=== PATIENT | female | born 1995 | race Caucasian/White ===

== ENCOUNTER 2016-11-14 08:17 | Emergency (ER) | payer OTHER ==
--- NOTE | 2016-11-14 09:47 | DIAGNOSTIC IMAGING REPORT ---
PROCEDURE: XR ANKLE 3 OR 4 VIEWS - RIGHT INDICATION: TRAUMA/INJURY TECHNIQUE: Four views. COMPARISON: None. FINDINGS: Osseous structures and joint spaces are normal. IMPRESSION: 1. Normal right ankle.
--- NOTE | 2016-11-14 10:56 | ED NURSING NOTES ---
Clinical Report - Nurses [facility] [address] [place] [address] 11/14/2016 8:19 Patient: HIRAL VILLANUEVA TRIAGE Triage time 08:Nov 14 2016. Acuity: LEVEL 4. Chief Complaint: RIGHT LOWER EXTREMITY PAIN and SWELLING. Alert. No acute distress. TOBI COMA SCORE: [place] Coma Scale: 15- eyes open spontaneously (4); best verbal response- oriented x 4 (5); best motor response- obeys commands (6). --08:31 Blaire Sheikh R.N. 08:27 11/14/16. BP: 132/80. HR: 81. RR: 16. O2 saturation: 99%. Temp: 97.8 F. Pain level now: 03/31. --08:31 Blaire Sheikh R.N. Weight: 108.8 kg stated. Height/Length: 65 inches Per Patient. BMI: 40. --08:30 Blaire Sheikh R.N. Medications Multivitamin Oral. --08:29 Blaire Sheikh R.N. Fish Oil Oral. --08:29 Blaire Sheikh R.N. Allergies No Known Drug Allergy. --08:29 Blaire Sheikh R.N. History Arrived by private vehicle. Historian: patient. Accompanied by family. Injury occurred. This occurred just prior to arrival. Occurred at home. It is described as radiating to the right lower extremity and calf. ( pt was getting out of travel trailer and she slipped and caught foot between stair and trailer.). She has had trouble walking. PAST MEDICAL HX: Tetanus status: up-to-date. Immunizations: up-to-date. Last normal menstrual period was 1 week ago. Denies current . SOCIAL HX: Never smoker. No alcohol use or drug use. No infectious disease exposure. SELF HARM ASSESSMENT: A self harm assessment was performed. The patient answered "no" to the question "Do you have thoughts of harming or killing yourself?". FALL RISK ASSESSMENT: Fall risk assessment completed. No fall risk identified. NUTRITIONAL RISK ASSESSMENT: The nutritional risk assessment revealed no deficiencies. FUNCTIONAL ASSESSMENT: Functional assessment: no impairments noted. LEARNING NEEDS ASSESSMENT: The learning needs assessment revealed no barriers. ABUSE ASSESSMENT: Abuse assessment: The patient was asked "Do you feel safe in your home?". SKIN INTEGRITY ASSESSMENT: Skin integrity risk assessment completed. No skin integrity risk identified. --08:31 Blaire Sheikh R.N. PROBLEMS: Anemia. Immunizations. . --08:29 Blaire Sheikh R.N. ADDITIONAL SURGERIES: Dental Surgery. --08:29 Blaire Sehikh R.N. Interventions ID band on patient. To room. --08:31 Blaire Sheikh R.N. PHYSICAL ASSESSMENT To room via wheelchair. GENERAL / NEURO / PSYCH: Oriented X 4. Alert. Appears in no acute distress. Appears in pain. CVS: Pulses: right popliteal 3+ and left popliteal 3+. EXTREMITIES: Limited ROM present. Extremity pulses are within normal limits. Neuro-vascular status intact to the extremity. Right lateral ankle: tenderness and swelling and medial ankle: tenderness and swelling. SKIN: Skin is warm and dry. --08:33 Blaire Sheikh R.N. NURSING PROGRESS NOTES Cold pack applied. Patient identifiers checked. Call light placed in reach. Side rails up x 1. Bed placed in lowest position. Brakes of bed on. Patient ready for evaluation- chart flagged. --08:33 Blaire Sheikh R.N. 10:23 11/14/16. BP: 139/93. HR: 86. RR: 16. O2 saturation: 99%. Pain level now: 01/28. --10:24 Blaire Sheikh R.N. DISPOSITION / DISCHARGE Departure time: 11:Nov 14 2016. Condition at departure: improved. The following issues were addressed: pain control and comfort issues. No learning barriers present. Discharge instructions provided and reviewed with the patient. Reviewed medication(s) side effects, precautions, dosing and course information. Reviewed referral to an orthopedic surgeon. Patient verbalized understanding. Written instructions provided in Korean. The patient was discharged home and accompanied by patient support specialist. She left the Emergency Department in a wheelchair and via private vehicle. Military Professional driving. FALL RISK ASSESSMENT: Fall risk assessment completed. No fall risk identified. --11:08 Blaire Sheikh R.N. 11:06 11/14/16. BP: 134/92. HR: 90. RR: 16. O2 saturation: 97%. Pain level now: 01/28. --11:08 Blaire Sheikh R.N. Locked/Released at 11/14/2016 16:32 by Blaire Sheikh R.N.
--- NOTE | 2016-11-14 10:56 | ED CLINICAL REPORT ---
Clinical Report - Physicians/Mid Levels [facility] [address] [place] [place] [address] 11/14/2016 8:19 Patient: HIRAL VILLANUEVA Time Seen: 09:15; initial patient contact. Arrived- By private vehicle. Historian- patient. HISTORY OF PRESENT ILLNESS Chief Complaint: Injury to the right ankle. The injury happened just prior to arrival. The patient slipped and sustained an inversion injury while walking (Tripped going down a step). Occurred at home. Patient is experiencing moderate pain. Patient denies injury to the head or neck. REVIEW OF SYSTEMS The patient complains of pain on weight bearing. She has had swelling. No tingling, weakness, numbness or skin laceration. All systems otherwise negative, except as recorded above. PAST HISTORY Anemia. Surgeries: Dental surgery. Medications: Fish Oil Oral. Multivitamin Oral. Allergies: No Known Drug Allergy. SOCIAL HISTORY Never smoker. No alcohol use or drug use. ADDITIONAL NOTES The nursing notes have been reviewed. PHYSICAL EXAM Vital Signs: 11/14/2016 08:27 BP: 132/80. HR: 81. RR: 16. O2 saturation: 99%. Temp: 97.8 F. Pain level now: 9/10. Have been reviewed as normal. Appearance: Alert. Oriented X3. No acute distress. Skin: Skin intact. Skin warm and dry. Extremities: Right ankle: moderate tenderness and mild swelling localized to the lateral ligaments and anterior ankle. Limited ROM secondary to pain (diminished plantar flexion, dorsiflexion, inversion and eversion). Neurovascular intact distally. No ligamentous laxity present. No joint effusion. No erythema, ecchymosis or deformity. Extremities otherwise negative. Gait: Gait not tested due to pain. Neuro, Vascular and Tendons: Vascular status intact. Sensation intact. Motor intact. Tendon function intact. Neuro: Oriented X 3. No motor deficit. No sensory deficit. LABS, X-RAYS, AND EKG Lt Ankle X-ray: No fracture. Normal alignment. No bony lesion, air in the soft tissue or foreign body. Joint spaces normal. Mild soft tissue swelling diffusely. Views: 3 view ankle series. Technique: good. The X-rays were independently viewed by me and interpreted contemporaneously by me. Prior films were not available for comparison. PROGRESS AND PROCEDURES Disposition: Discharged home in good and improved condition. Condition: good. CLINICAL IMPRESSION Sprain of the right ankle. INSTRUCTIONS Apply ice for 20 minutes until better. Don't apply ice directly to skin. Wear boot orthosis until released. Your Current Medications: CONTINUE TAKING THE FOLLOWING MEDICATIONS: Fish Oil Oral. Multivitamin Oral. Prescription Medications: Hydrocodone/APAP 5mg / 325mg: take 1 orally every 6 hours as needed for pain. Dispense fifteen (15). No refill. Follow-up: Screening today revealed the patient's blood pressure to be in the hypertensive range. The patient should follow up with a primary care provider for blood pressure management. [facility] with: [facility], , [address], [facility], [id number] Follow up in about two days. Call for an appointment. (Electronically signed by Isaiah Angulo Dr. 11/14/2016 10:57)
--- NOTE | 2016-11-14 10:56 | ED NURSING NOTES ---
Clinical Report - Nurses [facility] [address] [place] [address] 11/14/2016 8:19 Patient: HIRAL VILLANUEVA TRIAGE Triage time 08:Nov 14 2016. Acuity: LEVEL 4. Chief Complaint: RIGHT LOWER EXTREMITY PAIN and SWELLING. Alert. No acute distress. TOBI COMA SCORE: [place] Coma Scale: 15- eyes open spontaneously (4); best verbal response- oriented x 4 (5); best motor response- obeys commands (6). --08:31 Blaire Sheikh R.N. 08:27 11/14/16. BP: 132/80. HR: 81. RR: 16. O2 saturation: 99%. Temp: 97.8 F. Pain level now: 03/31. --08:31 Blaire Sheikh R.N. Weight: 108.8 kg stated. Height/Length: 65 inches Per Patient. BMI: 40. --08:30 Blaire Sheikh R.N. Medications Multivitamin Oral. --08:29 Blaire Sheikh R.N. Fish Oil Oral. --08:29 Blaire Sheikh R.N. Allergies No Known Drug Allergy. --08:29 Blaire Sheikh R.N. History Arrived by private vehicle. Historian: patient. Accompanied by family. Injury occurred. This occurred just prior to arrival. Occurred at home. It is described as radiating to the right lower extremity and calf. ( pt was getting out of travel trailer and she slipped and caught foot between stair and trailer.). She has had trouble walking. PAST MEDICAL HX: Tetanus status: up-to-date. Immunizations: up-to-date. Last normal menstrual period was 1 week ago. Denies current . SOCIAL HX: Never smoker. No alcohol use or drug use. No infectious disease exposure. SELF HARM ASSESSMENT: A self harm assessment was performed. The patient answered "no" to the question "Do you have thoughts of harming or killing yourself?". FALL RISK ASSESSMENT: Fall risk assessment completed. No fall risk identified. NUTRITIONAL RISK ASSESSMENT: The nutritional risk assessment revealed no deficiencies. FUNCTIONAL ASSESSMENT: Functional assessment: no impairments noted. LEARNING NEEDS ASSESSMENT: The learning needs assessment revealed no barriers. ABUSE ASSESSMENT: Abuse assessment: The patient was asked "Do you feel safe in your home?". SKIN INTEGRITY ASSESSMENT: Skin integrity risk assessment completed. No skin integrity risk identified. --08:31 Blaire Sheikh R.N. PROBLEMS: Anemia. Immunizations. . --08:29 Blaire Sheikh R.N. ADDITIONAL SURGERIES: Dental Surgery. --08:29 Blaire Sheikh R.N. Interventions ID band on patient. To room. --08:31 Blaire Sheikh R.N. PHYSICAL ASSESSMENT To room via wheelchair. GENERAL / NEURO / PSYCH: Oriented X 4. Alert. Appears in no acute distress. Appears in pain. CVS: Pulses: right popliteal 3+ and left popliteal 3+. EXTREMITIES: Limited ROM present. Extremity pulses are within normal limits. Neuro-vascular status intact to the extremity. Right lateral ankle: tenderness and swelling and medial ankle: tenderness and swelling. SKIN: Skin is warm and dry. --08:33 Blaire Sheikh R.N. NURSING PROGRESS NOTES Cold pack applied. Patient identifiers checked. Call light placed in reach. Side rails up x 1. Bed placed in lowest position. Brakes of bed on. Patient ready for evaluation- chart flagged. --08:33 Blaire Sheikh R.N. 10:23 11/14/16. BP: 139/93. HR: 86. RR: 16. O2 saturation: 99%. Pain level now: 01/28. --10:24 Blaire Sheikh R.N. DISPOSITION / DISCHARGE Departure time: 11:Nov 14 2016. Condition at departure: improved. The following issues were addressed: pain control and comfort issues. No learning barriers present. Discharge instructions provided and reviewed with the patient. Reviewed medication(s) side effects, precautions, dosing and course information. Reviewed referral to an orthopedic surgeon. Patient verbalized understanding. Written instructions provided in Vietnamese. The patient was discharged home and accompanied by rv servicer. She left the Emergency Department in a wheelchair and via private vehicle. Human Resources Talent Manager driving. FALL RISK ASSESSMENT: Fall risk assessment completed. No fall risk identified. --11:08 Blaire Sheikh R.N. 11:06 11/14/16. BP: 134/92. HR: 90. RR: 16. O2 saturation: 97%. Pain level now: 01/28. --11:08 Blaire Sheikh R.N. Locked/Released at 11/14/2016 16:32 by Blaire Sheikh R.N.
--- NOTE | 2016-11-14 10:56 | ED CLINICAL REPORT ---
Clinical Report - Physicians/Mid Levels [facility] [address] [place] [place] [address] 11/14/2016 8:19 Patient: HIRAL VILLANUEVA Time Seen: 09:15; initial patient contact. Arrived- By private vehicle. Historian- patient. HISTORY OF PRESENT ILLNESS Chief Complaint: Injury to the right ankle. The injury happened just prior to arrival. The patient slipped and sustained an inversion injury while walking (Tripped going down a step). Occurred at home. Patient is experiencing moderate pain. Patient denies injury to the head or neck. REVIEW OF SYSTEMS The patient complains of pain on weight bearing. She has had swelling. No tingling, weakness, numbness or skin laceration. All systems otherwise negative, except as recorded above. PAST HISTORY Anemia. Surgeries: Dental surgery. Medications: Fish Oil Oral. Multivitamin Oral. Allergies: No Known Drug Allergy. SOCIAL HISTORY Never smoker. No alcohol use or drug use. ADDITIONAL NOTES The nursing notes have been reviewed. PHYSICAL EXAM Vital Signs: 11/14/2016 08:27 BP: 132/80. HR: 81. RR: 16. O2 saturation: 99%. Temp: 97.8 F. Pain level now: 9/10. Have been reviewed as normal. Appearance: Alert. Oriented X3. No acute distress. Skin: Skin intact. Skin warm and dry. Extremities: Right ankle: moderate tenderness and mild swelling localized to the lateral ligaments and anterior ankle. Limited ROM secondary to pain (diminished plantar flexion, dorsiflexion, inversion and eversion). Neurovascular intact distally. No ligamentous laxity present. No joint effusion. No erythema, ecchymosis or deformity. Extremities otherwise negative. Gait: Gait not tested due to pain. Neuro, Vascular and Tendons: Vascular status intact. Sensation intact. Motor intact. Tendon function intact. Neuro: Oriented X 3. No motor deficit. No sensory deficit. LABS, X-RAYS, AND EKG Lt Ankle X-ray: No fracture. Normal alignment. No bony lesion, air in the soft tissue or foreign body. Joint spaces normal. Mild soft tissue swelling diffusely. Views: 3 view ankle series. Technique: good. The X-rays were independently viewed by me and interpreted contemporaneously by me. Prior films were not available for comparison. PROGRESS AND PROCEDURES Disposition: Discharged home in good and improved condition. Condition: good. CLINICAL IMPRESSION Sprain of the right ankle. INSTRUCTIONS Apply ice for 20 minutes until better. Don't apply ice directly to skin. Wear boot orthosis until released. Your Current Medications: CONTINUE TAKING THE FOLLOWING MEDICATIONS: Fish Oil Oral. Multivitamin Oral. Prescription Medications: Hydrocodone/APAP 5mg / 325mg: take 1 orally every 6 hours as needed for pain. Dispense fifteen (15). No refill. Follow-up: Screening today revealed the patient's blood pressure to be in the hypertensive range. The patient should follow up with a primary care provider for blood pressure management. Follow-up with: [facility], , [address], [facility], [id number] Follow up in about two days. Call for an appointment. (Electronically signed by Isaiah Angulo Dr. 11/14/2016 10:57)
--- NOTE | 2016-11-14 10:57 | ED ORDER SUMMARY ---
..... Patient: HIRAL VILLANUEVA OrderSheet [facility] VisitID: [id number] [address] [place] [address] 21y, F Registration Date/Time: 11/14/2016 ORDER SHEET Weight: 108.8 kg (stated) Allergies: No Known Drug Allergy GENERAL ORDERS: Ankle 3 or 4V Right Urgent (09:01 11/14/2016 Anni Myers.Neftali per protocol) (Ack 9:04 LNations ER Tech1) (9:16 LNations ER Tech1) Orthopedic Boot (10:39 11/14/2016 Angelika Butts) (10:54 Anni Cox) MEDICATION ORDERS: IV FLUIDS: ORDER SHEET NOTES: [Electronically signed by Isaiah Angulo Dr. (10:57 11/14/2016)] [Electronically signed by Blaire Sheikh R.N. (16:32 11/14/2016)] [Electronically locked/signed by Blaire Sheikh R.N. (16:32 11/14/2016)]
--- NOTE | 2016-11-14 10:57 | ED ORDER SUMMARY ---
..... Patient: HIRAL VILLANUEVA OrderSheet [facility] VisitID: [id number] [address] [place] [address] 21y, F Registration Date/Time: 11/14/2016 ORDER SHEET Weight: 108.8 kg (stated) Allergies: No Known Drug Allergy GENERAL ORDERS: Ankle 3 or 4V Right Urgent (09:01 11/14/2016 Anni Myers.Neftali per protocol) (Ack 9:04 LNations ER Tech1) (9:16 LNations ER Tech1) Orthopedic Boot (10:39 11/14/2016 Angelika Butts) (10:54 Anni Cox) MEDICATION ORDERS: IV FLUIDS: ORDER SHEET NOTES: [Electronically signed by Isaiah Angulo Dr. (10:57 11/14/2016)] [Electronically signed by Blaire Sheikh R.N. (16:32 11/14/2016)] [Electronically locked/signed by Blaire Sheikh R.N. (16:32 11/14/2016)]
--- NOTE | 2016-11-14 16:32 | ED DISCHARGE INSTRUCTIONS ---
Patient: HIRAL VILLANUEVA General Instructions [facility] VisitID: [id number] [address] [place], [place] [id number] 21y, F Registration Date/Time: 11/14/2016 Sprain of the right ankle. INSTRUCTIONS Apply ice for 20 minutes until better. Don't apply ice directly to skin. Wear boot orthosis until released. Your Current Medications: CONTINUE TAKING THE FOLLOWING MEDICATIONS: Fish Oil Oral. Multivitamin Oral. Prescription Medications: Hydrocodone/APAP 5mg / 325mg: take 1 orally every 6 hours as needed for pain. Dispense fifteen (15). No refill. Follow-up: Screening today revealed the patient's blood pressure to be in the hypertensive range. The patient should follow up with a primary care provider for blood pressure management. Follow-up with: [facility], , [address], [place], [id number] Follow up in about two days. Call for an appointment. ADDITIONAL INFORMATION Sprain, Ankle,With X-Ray A sprain is an injury to the ligaments or capsule that holds a joint together. There are no broken bones. Most sprains take from four to six weeks to heal. If the ligament is completely torn (severe sprain), it can take several months to recover. Mild to moderate sprains may be treated with an elastic wrap or an in-shoe splint to provide support and prevent re-injury. A mild sprain may not require any additional support. A severe sprain may require surgery to repair. Home care The following guidelines will help you care for your injury at home: Stay off the injured leg as much as possible until you can walk on it without pain. If you have a lot of pain with walking, crutches or a walker may be prescribed. (These can be rented or purchased at many pharmacies and surgical or orthopedic supply stores). Follow your doctor's advice regarding when to begin bearing weight on that leg. Keep your leg elevated to reduce pain and swelling. When sleeping, place a pillow under the injured leg. When sitting, support the injured leg so it is level with your waist. This is very important during the first 48 hours. Apply an ice pack (ice cubes in a plastic bag, wrapped in a towel) over the injured area for 20 minutes every 12 hours the first day. You can place the ice pack directly over the splint/cast. If you were given a boot, open it to apply the ice pack. Continue with ice packs 34 times a day for the next two days, then as needed for the relief of pain and swelling. You may use acetaminophen or ibuprofen to control pain, unless another pain medicine was prescribed. If you have chronic liver or kidney disease or ever had a stomach ulcer or GI bleeding, talk with your doctor before using these medicines. You may return to sports after healing, when you can run without pain. A sprained ankle is at risk for re-injury during the first six weeks. During that time, protect your ankle with an in-shoe splint that prevents tilting of your ankle from side to side. This is very important if you do active work or play sports during that time. Follow-up care Any X-rays you had today dont show any broken bones, breaks, or fractures. Sometimes fractures dont show up on the first X-ray. Bruises and sprains can sometimes hurt as much as a fracture. These injuries can take time to heal completely. If your symptoms dont improve or they get worse, talk with your doctor. You may need a repeat X-ray. When to seek medical care Get prompt medical attention if any of the following occur: The plaster cast or splint gets wet or soft The fiberglass cast or splint gets wet and does not dry for 24 hours Pain or swelling increases, or redness appears Toes become cold, blue, numb or tingly Re-injure your ankle Aircast Sp-Walker Boot Traditional splints and casts for the foot and ankle protect the injury by preventing movement at the joints. However, many injuries heal better and faster if the injured joint can be moved, while protected at the same time. This is the reason for using an Aircast Walker boot. This is a short boot that provides support and protection to the foot and ankle while allowing you to walk. It contains padded air cells that provide compression and help circulation. It is used for both foot and ankle injuries - both sprains and minor fractures. Ankle and foot sprains can take 4-6 weeks to heal. Persons with severe injuries or over age 60 may require more time to heal. During that time, you are prone to re-injury by suddenly twisting your foot or ankle again while the ligaments are still weak. When treating a sprain, the [employer] Walker boot should be worn whenever walking for at least four weeks, or as long as you continue to have ankle pain. Talk to your doctor for specific advice about the treatment of your condition. Air-Stirrup and SP-Walker are trademarks of [employer]. For more information about their products, see www.Voya.ge. Hydrocodone Bitartrate, Acetaminophen Oral tablet What is this medicine? ACETAMINOPHEN; HYDROCODONE (a set a SHWETA gina fen; joce droe KOE done) is a pain reliever. It is used to treat mild to moderate pain. How should I use this medicine? Take this medicine by mouth. Swallow it with a full glass of water. Follow the directions on the prescription label. If the medicine upsets your stomach, take the medicine with food or milk. Do not take more than you are told to take. Talk to your soda fountain clerk regarding the use of this medicine in children. This medicine is not approved for use in children. What side effects may I notice from receiving this medicine? Side effects that you should report to your doctor or health rn patient care as soon as possible: allergic reactions like skin rash, itching or hives, swelling of the face, lips, or tongue breathing problems confusion feeling faint or lightheaded, falls stomach pain yellowing of the eyes or skin Side effects that usually do not require medical attention (report to your doctor or health rn patient care if they continue or are bothersome): nausea, vomiting stomach upset What may interact with this medicine? alcohol antihistamines isoniazid medicines for depression, anxiety, or psychotic disturbances medicines for sleep muscle relaxants naltrexone narcotic medicines (opiates) for pain phenobarbital ritonavir tramadol What if I miss a dose? If you miss a dose, take it as soon as you can. If it is almost time for your next dose, take only that dose. Do not take double or extra doses. Where should I keep my medicine? Keep out of the reach of children. This medicine can be abused. Keep your medicine in a safe place to protect it from theft. Do not share this medicine with anyone. Selling or giving away this medicine is dangerous and against the law. Store at room temperature between 15 and 30 degrees C (59 and 86 degrees F). Protect from light. Keep container tightly closed. Throw away any unused medicine after the expiration date. Discard unused medicine and used packaging carefully. Pets and children can be harmed if they find used or lost packages. What should I tell my health care provider before I take this medicine? They need to know if you have any of these conditions: brain tumor Crohn's disease, inflammatory bowel disease, or ulcerative colitis drink more than 3 alcohol-containing drinks per day drug abuse or addiction head injury heart or circulation problems kidney disease or problems going to the bathroom liver disease lung disease, asthma, or breathing problems an unusual or allergic reaction to acetaminophen, hydrocodone, other opioid analgesics, other medicines, foods, dyes, or preservatives or trying to get breast-feeding What should I watch for while using this medicine? Tell your doctor or health rn patient care if your pain does not go away, if it gets worse, or if you have new or a different type of pain. You may develop tolerance to the medicine. Tolerance means that you will need a higher dose of the medicine for pain relief. Tolerance is normal and is expected if you take the medicine for a long time. Do not suddenly stop taking your medicine because you may develop a severe reaction. Your body becomes used to the medicine. This does NOT mean you are addicted. Addiction is a behavior related to getting and using a drug for a non-medical reason. If you have pain, you have a medical reason to take pain medicine. Your doctor will tell you how much medicine to take. If your doctor wants you to stop the medicine, the dose will be slowly lowered over time to avoid any side effects. You may get drowsy or dizzy when you first start taking the medicine or change doses. Do not drive, use machinery, or do anything that may be dangerous until you know how the medicine affects you. Stand or sit up slowly. There are different types of narcotic medicines (opiates) for pain. If you take more than one type at the same time, you may have more side effects. Give your health care provider a list of all medicines you use. Your doctor will tell you how much medicine to take. Do not take more medicine than directed. Call emergency for help if you have problems breathing. The medicine will cause constipation. Try to have a bowel movement at least every 2 to 3 days. If you do not have a bowel movement for 3 days, call your doctor or health rn patient care. Too much acetaminophen can be very dangerous. Do not take Tylenol (acetaminophen) or medicines that contain acetaminophen with this medicine. Many non-prescription medicines contain acetaminophen. Always read the labels carefully. You have been given the following additional information: Sprain, Ankle, With X-Ray Walker Boot Hydrocodone Bitartrate, Acetaminophen Oral tablet (Electronically signed by Isaiah Angulo Dr. 11/14/2016 10:57)
--- NOTE | 2016-11-14 16:32 | ED MED RECONCILIATION SUMMARY ---
Patient: HIRAL VILLANUEVA Medication Reconciliation Report [facility] VisitID: [id number] [address] [place] [address] 21y, F Registration Date/Time: 11/14/2016 Weight: 108.8 kg Height/Length: 65 in. BMI: 40.0 ALLERGIES: No Known Drug Allergy The patient's Home Medications are listed below: CONTINUE TAKING THE FOLLOWING MEDICATIONS: Fish Oil Oral Multivitamin Oral The source(s) of the original Home Medication information: Not obtained. The following Medications were given to the patient in the Emergency Department: None. The following Medications were prescribed to the patient: Hydrocodone/APAP 5mg / 325mg: take 1 orally every 6 hours as needed for pain. Dispense fifteen (15). No refill. -- Isaiah Angulo Dr.
--- NOTE | 2016-11-14 16:32 | ED MAR SUMMARY ---
..... Medication Administration Record [facility] [address] [place], [place] [id number] Patient: HIRAL VILLANUEVA Visit ID: [id number] 21y, F Weight: 108.8 kg Height/Length: 65 in BMI: 40 ALLERGIES: No Known Drug Allergy
--- NOTE | 2016-11-14 16:32 | ED MAR SUMMARY ---
..... Medication Administration Record [facility] [address] [place], [place] [id number] Patient: HIRAL VILLANUEVA Visit ID: [id number] 21y, F Weight: 108.8 kg Height/Length: 65 in BMI: 40 ALLERGIES: No Known Drug Allergy
--- NOTE | 2016-11-14 16:32 | ED DISCHARGE INSTRUCTIONS ---
Patient: HIRAL VILLANUEVA General Instructions [facility] VisitID: [id number] [address] [place], [place] [id number] 21y, F Registration Date/Time: 11/14/2016 Sprain of the right ankle. INSTRUCTIONS Apply ice for 20 minutes until better. Don't apply ice directly to skin. Wear boot orthosis until released. Your Current Medications: CONTINUE TAKING THE FOLLOWING MEDICATIONS: Fish Oil Oral. Multivitamin Oral. Prescription Medications: Hydrocodone/APAP 5mg / 325mg: take 1 orally every 6 hours as needed for pain. Dispense fifteen (15). No refill. Follow-up: Screening today revealed the patient's blood pressure to be in the hypertensive range. The patient should follow up with a primary care provider for blood pressure management. Follow-up with: [facility], , [address], [place], [id number] Follow up in about two days. Call for an appointment. ADDITIONAL INFORMATION Sprain, Ankle,With X-Ray A sprain is an injury to the ligaments or capsule that holds a joint together. There are no broken bones. Most sprains take from four to six weeks to heal. If the ligament is completely torn (severe sprain), it can take several months to recover. Mild to moderate sprains may be treated with an elastic wrap or an in-shoe splint to provide support and prevent re-injury. A mild sprain may not require any additional support. A severe sprain may require surgery to repair. Home care The following guidelines will help you care for your injury at home: Stay off the injured leg as much as possible until you can walk on it without pain. If you have a lot of pain with walking, crutches or a walker may be prescribed. (These can be rented or purchased at many pharmacies and surgical or orthopedic supply stores). Follow your doctor's advice regarding when to begin bearing weight on that leg. Keep your leg elevated to reduce pain and swelling. When sleeping, place a pillow under the injured leg. When sitting, support the injured leg so it is level with your waist. This is very important during the first 48 hours. Apply an ice pack (ice cubes in a plastic bag, wrapped in a towel) over the injured area for 20 minutes every 12 hours the first day. You can place the ice pack directly over the splint/cast. If you were given a boot, open it to apply the ice pack. Continue with ice packs 34 times a day for the next two days, then as needed for the relief of pain and swelling. You may use acetaminophen or ibuprofen to control pain, unless another pain medicine was prescribed. If you have chronic liver or kidney disease or ever had a stomach ulcer or GI bleeding, talk with your doctor before using these medicines. You may return to sports after healing, when you can run without pain. A sprained ankle is at risk for re-injury during the first six weeks. During that time, protect your ankle with an in-shoe splint that prevents tilting of your ankle from side to side. This is very important if you do active work or play sports during that time. Follow-up care Any X-rays you had today dont show any broken bones, breaks, or fractures. Sometimes fractures dont show up on the first X-ray. Bruises and sprains can sometimes hurt as much as a fracture. These injuries can take time to heal completely. If your symptoms dont improve or they get worse, talk with your doctor. You may need a repeat X-ray. When to seek medical care Get prompt medical attention if any of the following occur: The plaster cast or splint gets wet or soft The fiberglass cast or splint gets wet and does not dry for 24 hours Pain or swelling increases, or redness appears Toes become cold, blue, numb or tingly Re-injure your ankle Aircast Sp-Walker Boot Traditional splints and casts for the foot and ankle protect the injury by preventing movement at the joints. However, many injuries heal better and faster if the injured joint can be moved, while protected at the same time. This is the reason for using an Aircast Walker boot. This is a short boot that provides support and protection to the foot and ankle while allowing you to walk. It contains padded air cells that provide compression and help circulation. It is used for both foot and ankle injuries - both sprains and minor fractures. Ankle and foot sprains can take 4-6 weeks to heal. Persons with severe injuries or over age 60 may require more time to heal. During that time, you are prone to re-injury by suddenly twisting your foot or ankle again while the ligaments are still weak. When treating a sprain, the [employer] Walker boot should be worn whenever walking for at least four weeks, or as long as you continue to have ankle pain. Talk to your doctor for specific advice about the treatment of your condition. Air-Stirrup and SP-Walker are trademarks of [employer]. For more information about their products, see www.ticketea. Hydrocodone Bitartrate, Acetaminophen Oral tablet What is this medicine? ACETAMINOPHEN; HYDROCODONE (a set a SHWETA gina fen; joce droe KOE done) is a pain reliever. It is used to treat mild to moderate pain. How should I use this medicine? Take this medicine by mouth. Swallow it with a full glass of water. Follow the directions on the prescription label. If the medicine upsets your stomach, take the medicine with food or milk. Do not take more than you are told to take. Talk to your fine grade bulldozer operator regarding the use of this medicine in children. This medicine is not approved for use in children. What side effects may I notice from receiving this medicine? Side effects that you should report to your doctor or health career development manager as soon as possible: allergic reactions like skin rash, itching or hives, swelling of the face, lips, or tongue breathing problems confusion feeling faint or lightheaded, falls stomach pain yellowing of the eyes or skin Side effects that usually do not require medical attention (report to your doctor or health career development manager if they continue or are bothersome): nausea, vomiting stomach upset What may interact with this medicine? alcohol antihistamines isoniazid medicines for depression, anxiety, or psychotic disturbances medicines for sleep muscle relaxants naltrexone narcotic medicines (opiates) for pain phenobarbital ritonavir tramadol What if I miss a dose? If you miss a dose, take it as soon as you can. If it is almost time for your next dose, take only that dose. Do not take double or extra doses. Where should I keep my medicine? Keep out of the reach of children. This medicine can be abused. Keep your medicine in a safe place to protect it from theft. Do not share this medicine with anyone. Selling or giving away this medicine is dangerous and against the law. Store at room temperature between 15 and 30 degrees C (59 and 86 degrees F). Protect from light. Keep container tightly closed. Throw away any unused medicine after the expiration date. Discard unused medicine and used packaging carefully. Pets and children can be harmed if they find used or lost packages. What should I tell my health care provider before I take this medicine? They need to know if you have any of these conditions: brain tumor Crohn's disease, inflammatory bowel disease, or ulcerative colitis drink more than 3 alcohol-containing drinks per day drug abuse or addiction head injury heart or circulation problems kidney disease or problems going to the bathroom liver disease lung disease, asthma, or breathing problems an unusual or allergic reaction to acetaminophen, hydrocodone, other opioid analgesics, other medicines, foods, dyes, or preservatives or trying to get breast-feeding What should I watch for while using this medicine? Tell your doctor or health career development manager if your pain does not go away, if it gets worse, or if you have new or a different type of pain. You may develop tolerance to the medicine. Tolerance means that you will need a higher dose of the medicine for pain relief. Tolerance is normal and is expected if you take the medicine for a long time. Do not suddenly stop taking your medicine because you may develop a severe reaction. Your body becomes used to the medicine. This does NOT mean you are addicted. Addiction is a behavior related to getting and using a drug for a non-medical reason. If you have pain, you have a medical reason to take pain medicine. Your doctor will tell you how much medicine to take. If your doctor wants you to stop the medicine, the dose will be slowly lowered over time to avoid any side effects. You may get drowsy or dizzy when you first start taking the medicine or change doses. Do not drive, use machinery, or do anything that may be dangerous until you know how the medicine affects you. Stand or sit up slowly. There are different types of narcotic medicines (opiates) for pain. If you take more than one type at the same time, you may have more side effects. Give your health care provider a list of all medicines you use. Your doctor will tell you how much medicine to take. Do not take more medicine than directed. Call emergency for help if you have problems breathing. The medicine will cause constipation. Try to have a bowel movement at least every 2 to 3 days. If you do not have a bowel movement for 3 days, call your doctor or health career development manager. Too much acetaminophen can be very dangerous. Do not take Tylenol (acetaminophen) or medicines that contain acetaminophen with this medicine. Many non-prescription medicines contain acetaminophen. Always read the labels carefully. You have been given the following additional information: Sprain, Ankle, With X-Ray Walker Boot Hydrocodone Bitartrate, Acetaminophen Oral tablet (Electronically signed by Isaiah Angulo Dr. 11/14/2016 10:57)
--- NOTE | 2016-11-14 16:32 | ED MED RECONCILIATION SUMMARY ---
Patient: HIRAL VILLANUEVA Medication Reconciliation Report [facility] VisitID: [id number] [address] [place] [address] 21y, F Registration Date/Time: 11/14/2016 Weight: 108.8 kg Height/Length: 65 in. BMI: 40.0 ALLERGIES: No Known Drug Allergy The patient's Home Medications are listed below: CONTINUE TAKING THE FOLLOWING MEDICATIONS: Fish Oil Oral Multivitamin Oral The source(s) of the original Home Medication information: Not obtained. The following Medications were given to the patient in the Emergency Department: None. The following Medications were prescribed to the patient: Hydrocodone/APAP 5mg / 325mg: take 1 orally every 6 hours as needed for pain. Dispense fifteen (15). No refill. -- Isaiah Angulo Dr.
== END 2016-11-14 11:05 | disposition home or self-care (01) ==
LOC: ED SRH 08:17
DX: S93.401A Sprain of unspecified ligament of right ankle, initial encounter (principal); W18.40XA Slipping, tripping and stumbling without falling, unspecified, initial encounter; Y93.01 Activity, walking, marching and hiking; Y92.009 Unspecified place in unspecified non-institutional (private) residence as the place of occurrence of the external cause; Y99.8 Other external cause status

== ENCOUNTER 2016-12-03 12:40 | Outpatient (CLI) | payer OTHER ==
--- NOTE | 2016-12-03 13:20 | DIAGNOSTIC IMAGING REPORT ---
PROCEDURE: XR ANKLE 3 OR 4 VIEWS - RIGHT INDICATION: SPRAIN ANKLE RIGHT TECHNIQUE: Four views. COMPARISON: Right ankle films 11/14/2016 FINDINGS: Osseous structures and joint spaces are normal. IMPRESSION: 1. Normal right ankle.
== END 2016-12-03 23:00 ==
LOC: XR SRH 12:40
DX: S93.401D Sprain of unspecified ligament of right ankle, subsequent encounter (principal)